=== PATIENT | female | born 1935 | race Caucasian/White ===

== ENCOUNTER 2017-03-21 19:17 | Emergency (ER) | payer MEDICARE, OTHER ==
[~2017-03-21] VITALS: Ht 154.9 cm; Wt 65.2 kg
[~2017-03-21 19:17] MED LIST: ADVI200T PO; ALBAPLEX PO; ALEN70TA39 PO; ASPI325T PO; ASPI81TA85 PO; CHLO125TA PO; COZA1TAB PO; CYCL10TA PO; HYDR-3713 PO; LIDO5DIS36 TD; LOSA50TA20 PO; LOSA50TA21 PO; OMEG100011 PO; SUPPLEMENTS PO; SYST1SOL OU; ULTR37.52 PO; [UNRECOGNIZED DRUG - CODE] PO; [UNRECOGNIZED DRUG - OTHER] PO
[2017-03-21] MEDS ORDERED: METO25TA74 PO (19:37)
[2017-03-21] MEDS ORDERED: ASPI1TAB PO (19:37)
[2017-03-21] MEDS ORDERED: FISH100049 PO (19:37)
[2017-03-21] MEDS ORDERED: LOSA25TA8 PO (19:37)
[2017-03-21] MEDS ORDERED: PLAV75TA38 PO (19:37)
[2017-03-21] MEDS ORDERED: CARB25TA PO (19:41)
[2017-03-21] MEDS ORDERED: CATAPLEX D PO (19:41)
[2017-03-21] MEDS ORDERED: STOO100C PO (19:41)
[2017-03-21 19:59] LABS: EOS # 0.1 K/mm3 (0.0-0.50); EOS % 2.5 % (0.0-3.0); LARGE UNSTAINED CELL # 0.1 K/mm3 (0.0-0.4); LARGE UNSTAINED CELL % 1.6 % (0.0-4.0); LYMPH # 1.3 K/mm3 (1.5-4.5); LYMPH % 24.3 % (24.0-44.0); MEAN CORPUSCULAR HEMOGLOBIN 29.1 pg (27.0-33.0); MEAN CORPUSCULAR HGB CONC 33.8 g/dl (32.0-36.5); MONO # 0.4 K/mm3 (0.0-0.8); MONO % 7.1 % (0.0-5.0); NEUTROPHILS # 3.2 K/mm3 (1.8-7.7); NEUTROPHILS % 63.5 % (36.0-66.0); PLATELET COUNT, AUTOMATED 306 k/mm3 (150-450); RED CELL DISTRIBUTION WIDTH 13.3 % (11.5-14.5)
[2017-03-21] MEDS ORDERED: NS 500 ML IV ONE ×2 (20:00→21:00)
[2017-03-21 20:25] LABS: ANION GAP 8 MEQ/L (8-16); BLOOD UREA NITROGEN 23 MG/DL (7-18); CALCIUM LEVEL 8.8 MG/DL (8.8-10.2); CARBON DIOXIDE LEVEL 23 MEQ/L (21-32); CHLORIDE LEVEL 101 MEQ/L (98-107); CREATININE FOR GFR 0.85 MG/DL (0.55-1.02); GLOMERULAR FILTRATION RATE > 60.0 (>39); GLUCOSE, FASTING 98 MG/DL (83-110); POTASSIUM SERUM 3.8 MEQ/L (3.5-5.1); SODIUM LEVEL 132 MEQ/L (136-145)
[2017-03-21 21:50] VITALS: BP 142/89
--- NOTE | 2017-03-22 08:25 | ECGEPIP ---
Stationary ECG Study [facility] - ED Test Date: 2017-03-21 Pat Name: VIOLET NIÑO Department: Room: - Gender: F Retail Assistant Store Manager: rickey : 1935 Requested By: JESSICA LEVIN Order Number: [id number] Reading MD: Kip Marcelo Measurements Intervals Surveyor Rate: 113 P: 63 NV: 200 QRS: -29 QRSD: 87 T: 57 QT: 311 QTc: 428 Interpretive Statements ATRIAL TACHYCARDIA/FIBRILLATION WITH TRANSITION TO SINUS RHYTHM WITH PACs IN A BIGEMINY PATTERN LAFB MODERATE VOLTAGE CRITERIA FOR LVH, CONSIDER NORMAL VARIANT POSSIBLE SEPTAL MYOCARDIAL INFARCTION, OF INDETERMINATE AGE RHYTHM CHANGE COMPARED TO 05/04/16 Electronically Signed On 03-22-2017 8:25:49 EDT by Kip Marcelo
== END 2017-03-21 21:57 | disposition home or self-care (01) ==
LOC: M ED 20:05
DX: I95.1 Orthostatic hypotension (principal); E86.0 Dehydration; I10 Essential (primary) hypertension; I48.91 Unspecified atrial fibrillation; E78.5 Hyperlipidemia, unspecified; G20 Parkinson's disease; Z85.3 Personal history of malignant neoplasm of breast; Z79.899 Other long term (current) drug therapy; Z79.82 Long term (current) use of aspirin; Z79.02 Long term (current) use of antithrombotics/antiplatelets; Z88.2 Allergy status to sulfonamides; Z88.5 Allergy status to narcotic agent; Z88.8 Allergy status to other drugs, medicaments and biological substances

== ENCOUNTER → 2017-03-26 | Outpatient (REF) | payer MEDICARE, OTHER ==
[~2017-03-26] MED LIST changes: +ASPI1TAB PO; +CARB25TA PO; +CATAPLEX D PO; +FISH100049 PO; +LOSA25TA8 PO; +METO25TA74 PO; +PLAV75TA38 PO; +STOO100C PO
== END ==
LOC: M LAB REF 17:29
PROVIDERS: ATTEND Podiatrist Foot & Ankle Surgery
DX: L98.9 Disorder of the skin and subcutaneous tissue, unspecified (principal)

== ENCOUNTER 2017-05-20 16:54 | Inpatient (IN) | payer MEDICARE, OTHER ==
[~2017-05-20] VITALS: Ht 157.5 cm; Wt 65.4 kg
[~2017-05-20 16:54] MED LIST changes: -LIDO5DIS36 TD; +LIDO5DIS41 TD; -LOSA50TA21 PO; +LOSA50TA5 PO; +METO1TAB32 PO; -METO25TA74 PO; +PLAV1TAB2 PO; -PLAV75TA38 PO; -ULTR37.52 PO; +ULTR37.54 PO
[2017-05-20] MEDS ORDERED: PRAD150C PO (17:17)
[2017-05-20] MEDS ORDERED: LABETALOL HCL 100 MG/20 ML VIAL IV STA (17:43)
[2017-05-20 17:57] LABS: BASO # 0.1 K/mm3 (0.0-0.2); BASO % 1.3 % (0.0-1.0); EOS # 0.2 K/mm3 (0.0-0.50); EOS % 3.6 % (0.0-3.0); LARGE UNSTAINED CELL # 0.1 K/mm3 (0.0-0.4); LARGE UNSTAINED CELL % 2.7 % (0.0-4.0); LYMPH # 1.4 K/mm3 (1.5-4.5); LYMPH % 27.4 % (24.0-44.0); MEAN CORPUSCULAR HEMOGLOBIN 29.1 pg (27.0-33.0); MEAN CORPUSCULAR HGB CONC 33.1 g/dl (32.0-36.5); MEAN CORPUSCULAR VOLUME 87.8 fl (80.0-96.0); MONO # 0.3 K/mm3 (0.0-0.8); MONO % 6.2 % (0.0-5.0); NEUTROPHILS # 2.8 K/mm3 (1.8-7.7); NEUTROPHILS % 58.8 % (36.0-66.0); PLATELET COUNT, AUTOMATED 304 k/mm3 (150-450); RED CELL DISTRIBUTION WIDTH 13.4 % (11.5-14.5); WHITE BLOOD COUNT 4.7 K/mm3 (4.0-10.0)
[2017-05-20 18:11] LABS: ANION GAP 9 MEQ/L (8-16); BLOOD UREA NITROGEN 12 MG/DL (7-18); CALCIUM LEVEL 9.3 MG/DL (8.8-10.2); CARBON DIOXIDE LEVEL 24 MEQ/L (21-32); CHLORIDE LEVEL 102 MEQ/L (98-107); CREATININE FOR GFR 0.64 MG/DL (0.55-1.02); GLOMERULAR FILTRATION RATE > 60.0 (>39); GLUCOSE, FASTING 78 MG/DL (83-110); POTASSIUM SERUM 3.9 MEQ/L (3.5-5.1); SODIUM LEVEL 135 MEQ/L (136-145)
[2017-05-20] MEDS ORDERED: niCARdipine IV 40 MG in APPROPRIATE DILUENT 1 EA IV SCH (18:22)
[2017-05-20] MEDS ORDERED: ISOVUE-370 76% 100ML VIAL (Q9967) As Ordered ONE (18:30)
--- NOTE | 2017-05-20 19:01 | REP ---
CT BRAIN WITHOUT IV CONTRAST: CT Brain is performed without IV contrast. There is mild atrophy. There is no midline shift. Mild periventricular small vessel ischemic changes are seen. Which are chronic in nature. There is no acute hemorrhage. There is no extra-axial fluid collection. Bone window examination is unremarkable. IMPRESSION: Mild atrophy and chronic periventricular small vessel ischemic changes. No acute intracranial hemorrhage. Signed by Robby Fournier MD 05/21/2017 12:34 P
--- NOTE | 2017-05-20 19:04 | REP ---
CHEST, SINGLE VIEW: Single AP view of the chest is performed. There is no acute infiltrate. There is mild cardiomegaly. There is mild calcification and tortuosity of the thoracic aorta. The mediastinal silhouette is unchanged. IMPRESSION: No acute infiltrate. Mild cardiomegaly. Signed by Robby Fournier MD 05/21/2017 12:34 P
--- NOTE | 2017-05-20 19:40 | REPUSA ---
HISTORY: HYPERTENSIVE EMERGENCY VS CVA. Comparison is made to the noncontrast head CT examination d ated 05/20/17. TECHNIQUE: CTA protocol with axial imaging of brain with sagittal and coronal reformatted imaging and 3-D rendering of arterial vascular structures. DLP= 1006.8 mGy-cm. FINDINGS: The examination demonstrates normal contrast opacification of bilateral intracranial verteb ral arteries with PICA branches, basilar artery, superior cerebellar arteries, and bilateral posterio r cerebral arteries. There is also normal patency of the right and left internal carotid arteries, a nterior cerebral arteries, middle cerebral arteries, and port [place] vessels. There is no evide nce of arterial occlusion, stenosis, aneurysm, vasculitis, or arterial malformation seen. There is n ormal venous opacification of bilateral internal cerebral veins. There is no evidence of intracranial hemorrhage seen. IMPRESSION: Negative CTA of brain.
[2017-05-20 20:01] LABS: INR 1.17
--- NOTE | 2017-05-20 20:40 | ECGEPIP ---
Stationary ECG Study [facility] - ED Test Date: 2017-05-20 Pat Name: VIOLET NIÑO Department: Room: - Gender: F Chief Information Security Officer: MARIZOL : 1935 Requested By: Kip Leon Order Number: [id number] Reading MD: Joanne Land Measurements Intervals [place] Rate: 86 P: 26 NH: 204 QRS: -43 QRSD: 97 T: 22 QT: 364 QTc: 438 Interpretive Statements SINUS RHYTHM MARKED LEFT AXIS DEVIATION MINIMAL VOLTAGE CRITERIA FOR LVH, CONSIDER NORMAL VARIANT Electronically Signed On 05-20-2017 20:39:38 EDT by Joanne Land
[2017-05-20] MEDS ORDERED: ACETAMINOPHEN TAB 650MG DOSE (2X325MG) PO PRN (20:45)
[2017-05-20] MEDS ORDERED: SINEMET 25-100 MG TAB PO SCH (21:00)
[2017-05-20] MEDS ORDERED: FISH1000 PO (21:17)
[2017-05-20] MEDS ORDERED: COLC1TAB13 PO (21:17)
[2017-05-20] MEDS ORDERED: CATAPLEX D PO (21:17)
[2017-05-20] MEDS ORDERED: DOCU100C16 PO (21:17)
[2017-05-20] MEDS ORDERED: POLYVINYL ALCOHOL OPHTH SOLN 15 ML(LIQUITEARS) OU PRN (21:30)
[2017-05-20 21:58] LABS: MAGNESIUM LEVEL 2.2 MG/DL (1.8-2.4)
[2017-05-20] MEDS: hydrALAZINE INJ 20 MG/ML VIAL IV SCH (23:49)
[2017-05-21] MEDS: METOPROLOL TART 25 MG TABLET PO SCH ×2 (00:34→06:00)
[2017-05-21 01:01] LABS: ANION GAP 9 MEQ/L (8-16); BLOOD UREA NITROGEN 11 MG/DL (7-18); CALCIUM LEVEL 9.2 MG/DL (8.8-10.2); CARBON DIOXIDE LEVEL 25 MEQ/L (21-32); CHLORIDE LEVEL 99 MEQ/L (98-107); CREATININE FOR GFR 0.61 MG/DL (0.55-1.02); GLOMERULAR FILTRATION RATE > 60.0 (>39); GLUCOSE, FASTING 110 MG/DL (83-110); POTASSIUM SERUM 3.5 MEQ/L (3.5-5.1); SODIUM LEVEL 133 MEQ/L (136-145)
[2017-05-21 01:57] VITALS: BP 125/78
[2017-05-21] MEDS: NITROGLYCERIN 2% OINT 1 GM *U/D* PKT TOP SCH ×3 (01:57→08:53)
[2017-05-21] MEDS: DABIGATRAN ETEXILATE 75 MG CAP (PRADAXA) PO SCH ×2 (02:24→09:05)
[2017-05-21] MEDS: COLCHICINE 0.6 MG TAB PO SCH ×2 (02:24→09:05)
[2017-05-21] MEDS: hydrALAZINE INJ 20 MG/ML VIAL IV SCH ×3 (03:00→11:00)
[2017-05-21 05:06] VITALS: BP 105/75
[2017-05-21 06:27] LABS: BASO % 0.9 % (0.0-1.0); EOS % 0.4 % (0.0-3.0); LARGE UNSTAINED CELL # 0.1 K/mm3 (0.0-0.4); LARGE UNSTAINED CELL % 0.9 % (0.0-4.0); LYMPH # 0.9 K/mm3 (1.5-4.5); LYMPH % 17.2 % (24.0-44.0); MEAN CORPUSCULAR HEMOGLOBIN 28.3 pg (27.0-33.0); MEAN CORPUSCULAR HGB CONC 32.6 g/dl (32.0-36.5); MONO # 0.3 K/mm3 (0.0-0.8); MONO % 5.1 % (0.0-5.0); NEUTROPHILS # 3.9 K/mm3 (1.8-7.7); NEUTROPHILS % 75.4 % (36.0-66.0); PLATELET COUNT, AUTOMATED 337 k/mm3 (150-450); RED CELL DISTRIBUTION WIDTH 13.4 % (11.5-14.5); WHITE BLOOD COUNT 5.2 K/mm3 (4.0-10.0)
[2017-05-21 06:33] LABS: ANION GAP 9 MEQ/L (8-16); BLOOD UREA NITROGEN 11 MG/DL (7-18); CALCIUM LEVEL 8.7 MG/DL (8.8-10.2); CARBON DIOXIDE LEVEL 26 MEQ/L (21-32); CHLORIDE LEVEL 99 MEQ/L (98-107); CHOLESTEROL LEVEL 209 MG/DL (<200); CREATININE FOR GFR 0.63 MG/DL (0.55-1.02); GLOMERULAR FILTRATION RATE > 60.0 (>39); GLUCOSE, FASTING 90 MG/DL (83-110); MAGNESIUM LEVEL 2.2 MG/DL (1.8-2.4); POTASSIUM SERUM 3.6 MEQ/L (3.5-5.1); SODIUM LEVEL 134 MEQ/L (136-145); TRIGLYCERIDES LEVEL 70 MG/DL (<150)
[2017-05-21 07:49] VITALS: BP 111/67
[2017-05-21 08:50] VITALS: BP 108/68
[2017-05-21] MEDS ORDERED: OMEGA-3 1050MG CAPSULE PO SCH (09:00)
[2017-05-21] MEDS ORDERED: DOCUSATE SODIUM 100 MG CAP PO SCH (09:00)
[2017-05-21 11:00] VITALS: BP 127/84
[2017-05-21] MEDS ORDERED: METO25TA4 PO (11:51)
--- NOTE | 2017-05-21 18:38 | DS.PDOC ---
Discharge Summary General Date of Admission May 20, 2017 at 20:34 Date of Discharge May 21, 2017 Discharge Summary PROCEDURES PERFORMED DURING STAY: None. ADMITTING DIAGNOSES: 1. Hypertensive urgency . 2.. Hypertension. 3. Hyperlipidemia. 4. Gait instability. 5. History of right breast cancer status post lumpectomy and radiation in 1996. 6. Memory difficulties, being worked up for Parkinson's disease as an outpatient at [facility]. DISCHARGE DIAGNOSES: 1. Hypertensive urgency . 2.. Hypertension. 3. Hyperlipidemia. 4. Gait instability. 5. History of right breast cancer status post lumpectomy and radiation in 1996. 6. Memory difficulties, being worked up for Parkinson's disease as an outpatient at [facility]. Consultants: None COMPLICATIONS: None HOSPITAL COURSE: 81-year-old female admitted to the emergency last night and subsequently to the hospitalist service due to elevated blood pressure/ hypertensive urgency. With no acute findings on 12-lead EKG or on telemetry overnight. Her cardiac enzymes were cycled. They didn't appear to trend in the 0.5 range with no symptomatology this morning and her blood pressure was much better controlled. She does have an appointment with her otolaryngology teacher next week and I encouraged her to see her primary care provider within the next 7-10 days as well. Any rate, we did make some adjustments in her blood pressure medications and she'll follow-up with her primary care provider regarding this as well. DISCHARGE MEDICATIONS: Please see below. ALLERGIES: Please see below. PHYSICAL EXAMINATION ON DISCHARGE: VITAL SIGNS: Please see below. GENERAL: No Acute distress HEENT: Unremarkable NECK: Negative CARDIOVASCULAR EXAMINATION: Regular rate and rhythm RESPIRATORY EXAMINATION: Clear To auscultation ABDOMINAL EXAMINATION: Unremarkable EXTREMITIES: Unremarkable SKIN: Unremarkable NEUROLOGICAL EXAMINATION: Cranial nerves II through XII grossly intact PSYCHIATRIC EXAMINATION: Negative LABORATORY DATA: Please see below. Discharge condition is good. Disposition discharged home Discharge instructions ACTIVITY: As tolerated. DIET: Regular. Keep regular appointment with her otolaryngology teacher next week. She should schedule appointment with her primary care provider in the next 7-10 days. Seek medical attention should symptoms worsen or progress. TIME SPENT ON DISCHARGE: Greater than 35 minutes. Vital Signs/I&Os Vital Signs Date Time Temp Pulse Resp B/P (MAP) Pulse Ox O2 Delivery O2 Flow Rate FiO2 05/21/17 11:00 127/84 05/21/17 08:50 84 05/21/17 07:53 Nasal Cannula 2.0 05/21/17 07:49 99.2 18 95 I&O- Last 24 Hours up to 6 AM 05/21/17 06:00 Intake Total 227 ml Balance 227 ml Laboratory Data Labs 24H Laboratory Tests 2 05/20/17 19:36: Prothrombin Time 15.1H, Prothromb Time International Ratio 1.17, Activated Partial Thromboplast Time 42.2H 05/21/17 00:21: Anion Gap 9, Glomerular Filtration Rate > 60.0, Blood Urea Nitrogen 11, Creatinine 0.61, Sodium Level 133L, Potassium Level 3.5, Chloride Level 99, Carbon Dioxide Level 25, Calcium Level 9.2, Total Creatine Kinase 38, Creatine Kinase MB 1.0, Creatine Kinase MB Relative Index 2.63, Troponin I 0.52H 05/21/17 05:32: Anion Gap 9, Glomerular Filtration Rate > 60.0, Calcium Level 8.7L, Total Creatine Kinase 37, Creatine Kinase MB 1.0, Creatine Kinase MB Relative Index 2.70, Troponin I 0.50H, White Blood Count 5.2, Red Blood Count 4.25, Hemoglobin 12.0, Hematocrit 37.0, Mean Corpuscular Volume 87.0, Mean Corpuscular Hemoglobin 28.3, Mean Corpuscular Hemoglobin Concent 32.6, Red Cell Distribution Width 13.4, Platelet Count 337, Neutrophils (%) (Auto) 75.4H, Lymphocytes (%) (Auto) 17.2L, Monocytes (%) (Auto) 5.1H, Eosinophils (%) (Auto) 0.4, Basophils (%) (Auto) 0.9, Neutrophils # (Auto) 3.9, Lymphocytes # (Auto) 0.9L, Monocytes # (Auto) 0.3, Eosinophils # (Auto) 0.0, Basophils # (Auto) 0.0, Large Unclassified Cells % 0.9, Large Unclassified Cells # 0.1, Magnesium Level 2.2, Triglycerides Level 70, LDL Cholesterol 112.0H, Total Cholesterol 209H, Non -HDL Cholesterol (LDL + VLDL) 126, Total HDL Cholesterol 83, Cholesterol/HDL Ratio 2.518, Thyroid Stimulating Hormone (TSH) 0.419 CBC/BMP Laboratory Tests 05/21/17 00:21 Calcium Level 9.2, Total Creatine Kinase 38 05/21/17 05:32 Red Blood Count 4.25, Mean Corpuscular Volume 87.0, Mean Corpuscular Hemoglobin 28.3, Mean Corpuscular Hemoglobin Concent 32.6, Red Cell Distribution Width 13.4 , Neutrophils (%) (Auto) 75.4 H, Lymphocytes (%) (Auto) 17.2 L, Monocytes (%) ( Auto) 5.1 H, Eosinophils (%) (Auto) 0.4, Basophils (%) (Auto) 0.9, Neutrophils # (Auto) 3.9, Lymphocytes # (Auto) 0.9 L, Monocytes # (Auto) 0.3, Eosinophils # (Auto) 0.0, Basophils # (Auto) 0.0 Discharge Medications Scheduled Alendronate Sodium (Alendronate Sodium) 70 Mg Tab, 70 MG PO QWEEK, (Reported) TAKES ON Saturday Calcium Lactate (Kee-Lac) 500 Mg Cap, 500 MG PO DAILY, (Reported) Carbidopa/Levodopa (Carbidopa/Levodopa 25-100 mg) 1 Tab Tab, 1 TAB PO QHS, ( Reported) Colchicine (Colchicine) 0.6 Mg Tab, 0.6 MG PO BID, (Reported) Dabigatran Etexilate (Pradaxa) 150 Mg Cap, 150 MG PO BID, (Reported) Docusate Sodium (Docusate Sodium) 100 Mg Cap, 400 MG PO DAILY, (Reported) Fish Oil (Fish Oil) 1,000 Mg Cap, 1,000 MG PO DAILY, (Reported) Metoprolol Tartrate (Metoprolol Tartrate) 25 Mg Tab, 25 MG PO BID [Cataplex D] , 1 TAB PO DAILY, (Reported) Scheduled PRN Polyethylene Glycol (Systane 0.4-0.3 %) 15 Ml Jesi, 1 DROP OU TID PRN for DRY EYES, (Reported) Allergies Coded Allergies: Baclofen (Verified Allergy, Severe, SWELLING, 03/21/17) Gabapentin (Verified Allergy, Severe, SWELLING, 03/21/17) Hydrocodone (Verified Adverse Reaction, Intermediate, CONFUSION, 03/13/15) Sulfamethoxazole w/Trimethoprim (Verified Adverse Reaction, Intermediate, NAUSEA, 05/04/16) JOHNNIE ENGLAND DO May 21, 2017 18:38
--- NOTE | 2017-05-22 06:13 | HPE ---
DATE OF ADMISSION: 05/20/2017 Time patient was seen was at 2200 hours. PRIMARY CARE PROVIDER: Dr. Royal CHIEF COMPLAINT: Severe headache, nausea, shortness of breath with elevated blood pressure. HISTORY OF PRESENT ILLNESS: 81-year-old female with past medical history of recent cardiac ablation for uncontrolled paroxysmal atrial fibrillation, also hypertension, hyperlipidemia, osteoarthritis, breast cancer, syncope, and Parkinson's disease presented with elevated blood pressure this evening at home. Blood pressure was 171/110, and the patient also complained of severe headache that was bitemporal and also severe nausea. Per patient, this has happened in the past; however, today is much worse. She stated that she also had shortness of breath for the past few days and it is worse after walking. Patient appears to be exertional. She has a followup with joy loading machine operator next week. Her joy loading machine operator is Dr. Batres from [facility], and her facilities painter was Dr. Mendoza. Otherwise, patient denies any fever or chills, any abdominal pains. Denies any vomiting. Denies any diarrhea, constipation. Denies any dysuria, blood in urine. Denies any sick contract or recent traveling. ALLERGIES: Patient is allergic to BACLOFEN, which makes her head and hands swell; GABAPENTIN makes her head and hands swell; HYDROCODONE makes her confused ; and BACTRIM gives her nausea. However, patient stated all those happened so long ago, she does not remember clearly of the symptoms. HOME MEDICATIONS: Include: - alendronate 70 mg one tablet by mouth weekly - calcium lactate 500 mg one tablet by mouth daily - carbidopa/levadopa one tablet by mouth nightly - colchicine 0.6 mg by mouth twice a day - Pradaxa 150 mg one tablet by mouth twice a day - docusate 400 mg by mouth daily - fish oil 1000 mg by mouth daily - metoprolol succinate 25 mg by mouth nightly - polyethylene glycol one droplet each eye three times a day - Cataplex one tablet by mouth daily PAST MEDICAL HISTORY: Includin. Hypertension. 2. Atrial fibrillation status post ablation just a few weeks ago with Dr. Mendoza. 3. Hyperlipidemia. 4. Osteoarthritis. 5. History of syncope, possible transient ischemic attack (TIA). 6. Parkinson's disease. 7. Small vessel disease of the brain. PAST SURGICAL HISTORY: Includin. Recent ablation for atrial fibrillation. 2. (C) sections. 3. Right breast lumpectomy. 4. Total hysterectomy. 5. Cataract. 6. Left knee meniscus repair. 7. Left arm fracture repair. SOCIAL HISTORY: Patient is , lives with her . FAMILY HISTORY: Mother from lung cancer. Father from Alzheimer's disease. REVIEW OF SYSTEMS: General: Patient denies any weight changes, any recent traveling, sick contact, or any fever or chills. HEENT: Denies any changes with vision, smelling, hearing, or taste. Cardiovascular: Admits to shortness of breath that is exertional. Denies any chest pain, palpitations. Patient had atrial fibrillation and status post ablation just last Saturday. Pulmonary: Denies any lung disease; however, has shortness of breath currently. Gastrointestinal (GI): Denies any abdominal pains, nausea, vomiting, diarrhea, or constipation. Genitourinary (): Denies any blood in urine, any dysuria, urinary urgency. Musculoskeletal: Denies any pain anywhere. Endocrine: Denies any polydipsia, polyuria, any heat or cold intolerance. Hematology/Oncology: Denies any ease of bruise or any bleeding anywhere. Psychiatric: Denies any anxiety, depression. Neurologic: Denies any weakness on any one side of her body. PHYSICAL EXAM: Vital Signs: Temperature 98.2, pulse was 87, respirations 18, blood pressure 177/144, oxygen was saturating at 96% on room air. However, at the time of interview, patient required 2 liters of nasal cannula. General: Patient is a pleasant elderly female who was alert, awake, oriented times three, does not appear to be in distress, lying comfortably in bed with head elevated at a 45-degree angle. HEENT: Normocephalic, atraumatic. Extraocular motor intact. Mucosa moist. Neck: Supple. No neck lymphadenopathy. Cardiovascular: Regular rate, rhythm. Normal S1, S2. No murmurs. Lungs: Clear to auscultate bilaterally. No wheezing, rales, or rhonchi. Abdomen: Positive bowel sounds. Soft. There are no peritoneal signs. No ecchymosis. Extremities: No edema, clubbing, or cyanosis. Skin: Warm and dry. Neurologic: Cranial nerve II-XII intact. No focal neurologic deficit. LABS: WBC 7.4, hemoglobin 12.6, hematocrit 38, platelet count of 304, MCV 87.8. Sodium 135, potassium 3.9, chloride 102, bicarbonate 24, anion gap was 9, BUN 12 , creatinine 0.64, GFR greater than 60, fasting glucose 78, calcium 9.3, magnesium 2.2, total CK 65, CK-MB 1, troponin 0.63. BNP was slightly elevated at 148. PT 15.1, INR 1.17, PTT 42.2. Patient has a portable chest x-ray. Shows no acute infiltrate. Patient had a head CT without contrast. Shows mild atrophy and chronic periventricular small vessel ischemic changes. No acute intracranial bleed. CT angiography of the head shows a negative CT angiography of the brain. ASSESSMENT AND PLAN: 81-year-old female with multiple comorbidities, most significantly severe hypertension, paroxysmal atrial fibrillation status post ablation just last Saturday, hyperlipidemia, osteoarthritis, history of breast cancer, Parkinson's disease, multiple syncopes in the last, presented with: 1. Hypertensive urgency with initial blood pressure of 177/144. Patient also has severe headache and nausea with elevated blood pressure. At one point in the emergency room, her blood pressure was 200/140. Will titrate her blood pressure down slowly. In addition, she also has a troponin of 0.63; however, EKG did not show any abnormalities. It shows sinus rhythm with a ventricular rate of 81 beats per minute. Patient also has slightly elevated BNP. Will repeat EKG and continue to trend cardiac markers. Patient is currently on Pradaxa for atrial fibrillation. 2. Elevated troponin with troponin of 0.63. Will rule out acute coronary syndrome (ACS). It is likely secondary to hypertensive urgency from elevated blood pressure. Will continue to trend. EKG was normal. Patient is on Pradaxa and also metoprolol. 3. History of atrial fibrillation status post ablation just last Saturday. Continue to monitor. No signs of atrial fibrillation currently. Continue Pradaxa, beta-b[place] with metoprolol tartrate 25 mg by mouth every 6 hours. Patient was on metoprolol succinate at home. Continue colchicine for chest pain , which was started by cardiology outpatient. 4. History of hyperlipidemia; however, patient is not on any statin. Unclear the reason. Will likely need to obtain old record from patient's cardiology. 5. Osteoarthritis. Continue pain management with Tylenol and colchicine. 6. History of Parkinson's disease and multiple falls and syncope in the past. Continue fall precaution. 7. Deep venous thrombosis (DVT) prophylaxis. On home Pradaxa 150 mg by mouth twice a day. 8. Fluid and electrolyte and diet. Patient's potassium is 3.9, currently at goal. Continue [id number] diet and low-fat, low-cholesterol diet. DISPOSITION: Will investigate etiology for patient's hypertensive urgency. Will slowly titrate the patient's blood pressure down, and will continue to monitor any signs of acute coronary syndrome. Continue to trend troponins. Repeat EKG in the morning. Will possibly consider echocardiogram. Consider renal artery Doppler duplex. Patient has been discussed with attending doctor, Dr. Huddleston. My preceptor for this patient encounter was Dr. Cathie Huddleston. The preceptor was physically present in the building during the encounter and was fully available. As needed, all aspects of the patient interview, examination, medical decision making process, and medical care plan development were reviewed and approved by the preceptor. The preceptor is aware and concurs with the plan as stated in the body of this note and will attest to such by his/her cosignature. MATY
--- NOTE | 2017-05-23 19:43 | ECGEPIP ---
Stationary ECG Study [facility] Test Date: 2017-05-21 Pat Name: VIOLET NIÑO Department: ED Room: [place] [address] Gender: F Ceramics Artist: : 1935 Requested By: KONRAD WIGGINS Order Number: [id number] Reading MD: Estrellita oRwley Measurements Intervals [place] Rate: 85 P: 23 WI: 184 QRS: -40 QRSD: 94 T: -4 QT: 387 QTc: 461 Interpretive Statements SINUS RHYTHM MARKED LEFT AXIS DEVIATION,POOR R WAVE PROGRESSION PATTERN CONSISTENT WITH PULMONARY DISEASE NONSPECIFIC T-WAVE ABNORMALITY SIMILAR 05/20/17 Electronically Signed On 05-23-2017 19:43:18 EDT by Estrellita Rowley
== END 2017-05-21 12:25 | disposition home or self-care (01) | DRG 305 ==
LOC: M ED 16:54 → M ED INP 20:34
PROVIDERS: ADMIT General Practice; ATTEND Hospitalist
DX: I16.0 Hypertensive urgency (principal); I10 Essential (primary) hypertension; Z92.3 Personal history of irradiation; Z85.3 Personal history of malignant neoplasm of breast; R26.81 Unsteadiness on feet; Z79.01 Long term (current) use of anticoagulants; Z79.899 Other long term (current) drug therapy; Z88.1 Allergy status to other antibiotic agents; Z88.8 Allergy status to other drugs, medicaments and biological substances; G20 Parkinson's disease; Z90.710 Acquired absence of both cervix and uterus; Z98.49 Cataract extraction status, unspecified eye; M19.90 Unspecified osteoarthritis, unspecified site

== ENCOUNTER 2017-05-23 11:04 | Emergency (ER) | payer MEDICARE, OTHER ==
[~2017-05-23] VITALS: Ht 157.5 cm; Wt 61.8 kg
[~2017-05-23 11:04] MED LIST changes: +COLC1TAB13 PO; +DOCU100C16 PO; +FISH1000 PO; +METO25TA4 PO; +PRAD150C PO
[2017-05-23] MEDS ORDERED: BENZ100C5 (11:22)
[2017-05-23 12:44] LABS: MEAN CORPUSCULAR HEMOGLOBIN 28.8 pg (27.0-33.0); MEAN CORPUSCULAR HGB CONC 33.6 g/dl (32.0-36.5); MEAN CORPUSCULAR VOLUME 85.8 fl (80.0-96.0); RED CELL DISTRIBUTION WIDTH 13.2 % (11.5-14.5); WHITE BLOOD COUNT 5.1 K/mm3 (4.0-10.0)
[2017-05-23] MEDS ORDERED: ACETAMINOPHEN TAB 650MG DOSE (2X325MG) PO ONE (13:00)
[2017-05-23] MEDS ORDERED: **hydrALAZINE HCL** 25 MG TAB PO ONE (13:00)
[2017-05-23 13:14] LABS: ANION GAP 8 MEQ/L (8-16); BLOOD UREA NITROGEN 14 MG/DL (7-18); CALCIUM LEVEL 9.3 MG/DL (8.8-10.2); CARBON DIOXIDE LEVEL 27 MEQ/L (21-32); CHLORIDE LEVEL 99 MEQ/L (98-107); CREATININE FOR GFR 0.73 MG/DL (0.55-1.02); GLOMERULAR FILTRATION RATE > 60.0 (>39); GLUCOSE, FASTING 85 MG/DL (83-110); SODIUM LEVEL 134 MEQ/L (136-145); T UPTAKE 38 % (30-39); THYROXINE (T4) 11.5 UG/DL (4.5-12.0)
[2017-05-23 13:15] LABS: POTASSIUM SERUM 4.5 MEQ/L (3.5-5.1)
--- NOTE | 2017-05-23 13:28 | REP ---
CHEST, TWO VIEWS: Two views of the chest are performed and compared to single view chest 05/20/2017 as well as other prior exams dating back to 04/25/2010. There is minor fibroatelectatic change in each lung base without evidence of acute infiltrate. Heart is upper limits of normal in size. There is some tortuosity of the thoracic aorta. The mediastinal silhouette is unchanged. There is osteopenia with compression deformities of thoracic spine which have increased in severity since the thoracic spine series of 03/15/2015. There is a fairly severe compression deformity at the T8 level. IMPRESSION: No acute infiltrate. Progressive compression deformities of thoracic vertebral bodies. Signed by Robby Fournier MD 05/23/2017 05:04 P
[2017-05-23 13:29] VITALS: BP 151/91
[2017-05-23] MEDS ORDERED: ISOVUE-370 76% 100ML VIAL (Q9967) As Ordered ONE (14:05)
--- NOTE | 2017-05-23 15:27 | REP ---
CT of the abdomen pelvis with IV contrast, without bowel contrast: Comparison is 03/12/2011. The visualized lung mohan are unchanged and unremarkable. The hepatic parenchyma contains a few tiny cysts but is unchanged and otherwise unremarkable. The gallbladder, pancreas and spleen are unchanged unremarkable. There are no adrenal masses. The adrenals are unremarkable. There are multiple bilateral renal cortical cysts. These are not significantly changed. The abdominal aorta contains calcified atheroma but is otherwise unremarkable. There is no periaortic or retroperitoneal mass. The bowel is unremarkable except for descending colon and sigmoid colon diverticulosis. There is no diverticulitis. This is unchanged. No abdominal or pelvic masses are identified. Pelvis: There is a right hip arthroplasty resulting in beam hardening artifact obscuring visualization of the pelvis. This was not present previously. The the patient indicates she has a hysterectomy. The vaginal cuff and adnexa are unremarkable. There is no ascites. The bladder is unremarkable. Impression: There are no adrenal, retroperitoneal or abdominal masses. There are numerous bilateral renal cortical cysts, unchanged. There are scattered tiny hepatic cysts, unchanged. No ascites or adenopathy. Diverticulosis without diverticulitis. Signed by Robby Groves MD 05/23/2017 03:19 P
[2017-05-23 16:06] VITALS: BP 134/89
--- NOTE | 2017-05-24 08:45 | ECGEPIP ---
Stationary ECG Study [facility] - ED Test Date: 2017-05-23 Pat Name: VIOLET NIÑO Department: Room: - Gender: F Private Duty Aide: casandra : 1935 Requested By: SANJEEV Solis Order Number: [id number] Reading MD: Joanne Land Measurements Intervals [place] Rate: 74 P: 33 MT: 196 QRS: -48 QRSD: 96 T: 40 QT: 383 QTc: 427 Interpretive Statements SINUS RHYTHM LEFT ANTERIOR FASCICULAR BLOCK MODERATE VOLTAGE CRITERIA FOR LVH, CONSIDER NORMAL VARIANT POSSIBLE SEPTAL MYOCARDIAL INFARCTION, OF INDETERMINATE AGE DECREASED RATE 05/21/17 Electronically Signed On 05-24-2017 8:44:40 EDT by Joanne Land
== END 2017-05-23 16:41 | disposition home or self-care (01) ==
LOC: M ED 11:04
DX: I10 Essential (primary) hypertension (principal); I48.91 Unspecified atrial fibrillation; G20 Parkinson's disease; E78.4 Other hyperlipidemia; Z86.73 Personal history of transient ischemic attack (TIA), and cerebral infarction without residual deficits
CPT/HCPCS: 36415; 71020; 74177; 80048; 81001; 84436; 84443; 84479; 85007; 85027; 93005; 99284; Q9967

== ENCOUNTER 2017-06-10 09:55 | Emergency (ER) | payer MEDICARE, OTHER ==
[~2017-06-10] VITALS: Ht 154.9 cm; Wt 65.2 kg
[~2017-06-10 09:55] MED LIST changes: +BENZ100C5
[2017-06-10] MEDS ORDERED: ALBUTEROL SULFATE 2.5 MG/0.5 ML INH NEB SOLN INH ONE (10:45)
[2017-06-10] MEDS ORDERED: methylPREDNISolone INJ 125 MG/2 ML VIAL (J2930) IV ONE (10:45)
[2017-06-10] MEDS ORDERED: IPRATROPIUM 0.5MG/ALBUTEROL 2.5MG INH SOL UD 3ML (DUONEB)(J7620) NEB ONE (10:45)
--- NOTE | 2017-06-10 11:02 | REP ---
Clinical: Dyspnea and cough . Comparison: 05/23/2017 . Findings: The mediastinum and cardiac silhouette are stable and within normal limits for portable technique. The lung mohan are clear without acute consolidation, effusion, or pneumothorax. Skeletal structures are intact. Impression: No acute cardiopulmonary process appreciated. Signed by Kirby Delaney MD 06/10/2017 10:53 A
[2017-06-10 11:03] LABS: BASO # 0.1 K/mm3 (0.0-0.2); BASO % 1.6 % (0.0-1.0); EOS # 0.1 K/mm3 (0.0-0.50); EOS % 3.8 % (0.0-3.0); LARGE UNSTAINED CELL % 1.2 % (0.0-4.0); LYMPH % 26.5 % (24.0-44.0); MEAN CORPUSCULAR HEMOGLOBIN 29.1 pg (27.0-33.0); MEAN CORPUSCULAR HGB CONC 33.4 g/dl (32.0-36.5); MEAN CORPUSCULAR VOLUME 86.9 fl (80.0-96.0); MONO # 0.2 K/mm3 (0.0-0.8); MONO % 5.5 % (0.0-5.0); NEUTROPHILS # 2.3 K/mm3 (1.8-7.7); NEUTROPHILS % 61.4 % (36.0-66.0); PLATELET COUNT, AUTOMATED 337 k/mm3 (150-450); RED CELL DISTRIBUTION WIDTH 13.5 % (11.5-14.5); WHITE BLOOD COUNT 3.7 K/mm3 (4.0-10.0)
[2017-06-10 11:12] LABS: INR 1.11
[2017-06-10 11:22] LABS: ALBUMIN 3.4 GM/DL (3.2-5.2); ALBUMIN/GLOBULIN RATIO 0.87 (1.00-1.93); ALKALINE PHOSPHATASE 87 U/L (45-117); ALT/SGPT 9 U/L (12-78); ANION GAP 9 MEQ/L (8-16); AST/SGOT 13 U/L (15-37); BILIRUBIN,DIRECT < 0.1 MG/DL (0.0-0.2); BILIRUBIN,TOTAL 0.4 MG/DL (0.2-1.0); BLOOD UREA NITROGEN 10 MG/DL (7-18); CALCIUM LEVEL 8.8 MG/DL (8.8-10.2); CARBON DIOXIDE LEVEL 25 MEQ/L (21-32); CHLORIDE LEVEL 106 MEQ/L (98-107); CREATININE FOR GFR 0.68 MG/DL (0.55-1.02); GLOMERULAR FILTRATION RATE > 60.0 (>39); GLUCOSE, FASTING 84 MG/DL (83-110); POTASSIUM SERUM 3.7 MEQ/L (3.5-5.1); SODIUM LEVEL 140 MEQ/L (136-145); TOTAL PROTEIN 7.3 GM/DL (6.4-8.2)
[2017-06-10 12:53] VITALS: BP 150/110
--- NOTE | 2017-06-11 20:58 | ECGEPIP ---
Stationary ECG Study [facility] - ED Test Date: 2017-06-10 Pat Name: VIOLET NIÑO Department: Room: - Gender: F Cobbler Apprentice: casandra : 1935 Requested By: Harshal Moss Order Number: [id number] Reading MD: Joanne Land Measurements Intervals [place] Rate: 74 P: 27 MO: 192 QRS: -35 QRSD: 94 T: -1 QT: 377 QTc: 420 Interpretive Statements SINUS RHYTHM MARKED LEFT AXIS DEVIATION MODERATE VOLTAGE CRITERIA FOR LVH, CONSIDER NORMAL VARIANT SIMILAR 05/23/17 Electronically Signed On 06-11-2017 20:58:36 EDT by Joanne Land
== END 2017-06-10 13:06 | disposition home or self-care (01) ==
LOC: M ED 09:55
DX: R05 Cough (principal); I48.91 Unspecified atrial fibrillation; E10.9 Type 1 diabetes mellitus without complications; I10 Essential (primary) hypertension; E78.4 Other hyperlipidemia
CPT/HCPCS: 71010; 80048; 80076; 82550; 82553; 83605; 83880; 84436; 84443; 84484; 85025; 85379; 85610; 87040; 87804; 93005; 93041; 94640; 94760; 96374; 99285; J2930

== ENCOUNTER 2017-06-12 16:37 | Emergency (ER) | payer MEDICARE, OTHER ==
[~2017-06-12] VITALS: Ht 157.5 cm; Wt 64.5 kg
[2017-06-12] MEDS ORDERED: AZIT-12 PO (17:13)
[2017-06-12] MEDS ORDERED: PRED20TA PO (17:13)
[2017-06-12] MEDS ORDERED: ONDANSETRON 4 MG ORAL DISINTEGRATING TAB (S0181) PO ONE (18:15)
[2017-06-12] MEDS ORDERED: ACETAMINOPHEN TAB 650MG DOSE (2X325MG) PO ONE (18:15)
--- NOTE | 2017-06-12 18:59 | REP ---
T-spine series: Three views: History: Mid to left back pain. Question compression fracture. Comparison chest x-ray is from 05/23/2017. Comparison thoracic spine radiographs are from 03/15/2015. Findings: There is 75% collapse and anterior wedging at the T8 vertebral body. There is progressive volume loss and compared to the 03/15/2015 prior study. This is unchanged from the 05/23/2017 prior study however. There is also mild wedging at the T5 vertebral body anteriorly. This is unchanged from most recent chest x-ray of 05/23/2017. It is new when compared with the prior T-spine series from 2014. Degenerative disc disease is seen in the mid and lower thoracic spine as before. There is diffuse osteopenia. There is slight paravertebral swelling about the T8 vertebral body. Impression: Wedge compression fracture deformities at T5 and T8 both unchanged from the 05/23/2017 prior chest x-ray. There has been progressive loss of vertebral body height at T8 and the T5 compression is new when compared with the older thoracic spine radiographs of March 2015. Signed by Iggy Smalls MD 06/12/2017 07:20 P
[2017-06-12 19:23] LABS: BASO % 0.2 % (0.0-1.0); EOS % 0.3 % (0.0-3.0); LARGE UNSTAINED CELL # 0.1 K/mm3 (0.0-0.4); LARGE UNSTAINED CELL % 0.8 % (0.0-4.0); LYMPH # 1.1 K/mm3 (1.5-4.5); LYMPH % 13.2 % (24.0-44.0); MEAN CORPUSCULAR HEMOGLOBIN 29.1 pg (27.0-33.0); MEAN CORPUSCULAR HGB CONC 33.8 g/dl (32.0-36.5); MONO # 0.4 K/mm3 (0.0-0.8); MONO % 4.8 % (0.0-5.0); NEUTROPHILS # 6.4 K/mm3 (1.8-7.7); NEUTROPHILS % 80.6 % (36.0-66.0); PLATELET COUNT, AUTOMATED 361 k/mm3 (150-450); RED CELL DISTRIBUTION WIDTH 13.2 % (11.5-14.5)
--- NOTE | 2017-06-12 19:34 | REP ---
Left rib series: Five views including PA chest: History: Rule out posterior rib fracture. Comparison radiographs of the left rib cage is from 07/29/2015. Findings: PA chest radiograph shows mildly prominent heart unchanged from comparison chest x-ray 06/10/2017. There is diffuse osteopenia. The aorta is tortuous. The lung mohan are clear. No pneumothorax is seen. Multiple views of the left rib cage show old appearing healed fractures of the left anterior 6th, 7th, 8th, and 9th ribs. No definite new rib fracture is seen. Cardiac monitoring device is seen overlying the heart. Impression: Old appearing fractures of the 6th through 9th anterior ribs. Signed by Iggy Smalls MD 06/12/2017 08:06 P
[2017-06-12 19:46] LABS: ANION GAP 10 MEQ/L (8-16); BLOOD UREA NITROGEN 13 MG/DL (7-18); CALCIUM LEVEL 9.2 MG/DL (8.8-10.2); CARBON DIOXIDE LEVEL 27 MEQ/L (21-32); CHLORIDE LEVEL 99 MEQ/L (98-107); CREATININE FOR GFR 0.89 MG/DL (0.55-1.02); GLOMERULAR FILTRATION RATE > 60.0 (>39); GLUCOSE, FASTING 92 MG/DL (83-110); POTASSIUM SERUM 3.3 MEQ/L (3.5-5.1); SODIUM LEVEL 136 MEQ/L (136-145)
[2017-06-12 20:01] VITALS: BP 160/80
[2017-06-12] MEDS ORDERED: BENZ200C53 PO (20:42)
--- NOTE | 2017-06-12 21:44 | ECGEPIP ---
Stationary ECG Study [facility] - ED Test Date: 2017-06-12 Pat Name: VIOLET NIÑO Department: Room: - Gender: F Broadcast Journalist: : 1935 Requested By: JOHNNIE LALA PA-C. Order Number: [id number] Reading MD: Joanne Land Measurements Intervals [place] Rate: 75 P: 66 DE: 180 QRS: -34 QRSD: 103 T: 18 QT: 389 QTc: 435 Interpretive Statements SINUS RHYTHM MARKED LEFT AXIS DEVIATION MODERATE VOLTAGE CRITERIA FOR LVH, CONSIDER NORMAL VARIANT SIMILAR 06/10/17 Electronically Signed On 06-12-2017 21:43:56 EDT by Joanne Land
== END 2017-06-12 20:58 | disposition home or self-care (01) ==
LOC: M ED 16:37
DX: S22.050D Wedge compression fracture of T5-T6 vertebra, subsequent encounter for fracture with routine healing (principal); S22.060D Wedge compression fracture of T7-T8 vertebra, subsequent encounter for fracture with routine healing; R11.0 Nausea; R05 Cough; R10.32 Left lower quadrant pain; Z79.01 Long term (current) use of anticoagulants; X58.XXXA Exposure to other specified factors, initial encounter; Y92.89 Other specified places as the place of occurrence of the external cause; Y93.89 Activity, other specified; Y99.9 Unspecified external cause status

== ENCOUNTER → 2017-06-20 | Outpatient (REF) | payer MEDICARE, OTHER ==
[~2017-06-20] MED LIST changes: +AZIT-12 PO; +BENZ200C53 PO; +PRED20TA PO
[2017-06-20 16:31] LABS: BLOOD UREA NITROGEN 13 MG/DL (7-18); CREATININE FOR GFR 0.84 MG/DL (0.55-1.02); GLOMERULAR FILTRATION RATE > 60.0 (>39)
== END ==
LOC: M LABDRAW1 15:33
PROVIDERS: ATTEND Orthopaedic Surgery
DX: S23.3XXA Sprain of ligaments of thoracic spine, initial encounter (principal); X58.XXXA Exposure to other specified factors, initial encounter; Y92.89 Other specified places as the place of occurrence of the external cause; Y93.89 Activity, other specified; Y99.8 Other external cause status

== ENCOUNTER → 2018-03-05 | Outpatient (CLI) | payer MEDICARE, OTHER ==
[2018-03-05 11:54] LABS: TOTAL 25(OH) VITAMIN D 51.8 NG/ML (30.0-100.0)
[2018-03-05 11:55] LABS: ANION GAP 6 MEQ/L (8-16); BLOOD UREA NITROGEN 15 MG/DL (7-18); CALCIUM LEVEL 8.9 MG/DL (8.8-10.2); CARBON DIOXIDE LEVEL 28 MEQ/L (21-32); CHLORIDE LEVEL 105 MEQ/L (98-107); GLOMERULAR FILTRATION RATE > 60.0 (>32); GLUCOSE, FASTING 84 MG/DL (70-100); POTASSIUM SERUM 4.5 MEQ/L (3.5-5.1); SODIUM LEVEL 139 MEQ/L (136-145)
== END ==
LOC: M LAB 10:22
DX: M81.0 Age-related osteoporosis without current pathological fracture (principal); E55.9 Vitamin D deficiency, unspecified
CPT/HCPCS: 82306

== ENCOUNTER 2018-03-12 13:17 | Outpatient (CLI) | payer MEDICARE, OTHER ==
[2018-03-12] MEDS: ZOLEDRONIC ACID 5 MG in APPROPRIATE DILUENT 1 EA IV (13:48)
== END 2018-03-12 14:30 | disposition home or self-care (01) ==
LOC: M INFU 13:17
DX: M81.0 Age-related osteoporosis without current pathological fracture (principal); I10 Essential (primary) hypertension; E78.00 Pure hypercholesterolemia, unspecified; G20 Parkinson's disease; M12.9 Arthropathy, unspecified; Z79.899 Other long term (current) drug therapy; Z88.8 Allergy status to other drugs, medicaments and biological substances; Z86.73 Personal history of transient ischemic attack (TIA), and cerebral infarction without residual deficits; Z85.3 Personal history of malignant neoplasm of breast; Z86.79 Personal history of other diseases of the circulatory system
CPT/HCPCS: J3489

== ENCOUNTER → 2019-03-23 | Outpatient (REF) | payer MEDICARE, OTHER ==
[~2019-03-23] MED LIST changes: -ALEN70TA39 PO; +ALEN70TA74 PO; +ASPI-1 PO; -ASPI1TAB PO; -ASPI325T PO; +ASPI81TA26 PO; +BENZ-18; -BENZ100C5; -BENZ200C53 PO; +BENZ200C70 PO; -CARB25TA PO; +CARB25TA9 PO; +LOSA25TA14 PO; -LOSA25TA8 PO; -LOSA50TA20 PO; +LOSA50TA88 PO; -PRAD150C PO; +PRAD150C6 PO
[2019-03-23 16:35] LABS: BLOOD UREA NITROGEN 17 MG/DL (7-18); CALCIUM LEVEL 9.8 MG/DL (8.8-10.2); CARBON DIOXIDE LEVEL 27 MEQ/L (21-32); CHLORIDE LEVEL 106 MEQ/L (98-107); CREATININE FOR GFR 0.72 MG/DL (0.55-1.30); GLOMERULAR FILTRATION RATE > 60.0 (>32); GLUCOSE, FASTING 78 MG/DL (70-100); POTASSIUM SERUM 3.9 MEQ/L (3.5-5.1); SODIUM LEVEL 139 MEQ/L (136-145)
[2019-03-23 16:46] LABS: TOTAL 25(OH) VITAMIN D 38.3 NG/ML (30.0-100.0)
== END ==
LOC: M LABDRAW1 15:38
PROVIDERS: ATTEND Internal Medicine Endocrinology, Diabetes & Metabolism
DX: M81.0 Age-related osteoporosis without current pathological fracture (principal)

== ENCOUNTER → 2019-04-16 | Outpatient (CLI) | payer MEDICARE, OTHER ==
[~2019-04-16] MED LIST changes: +MM S100C PO; -STOO100C PO
--- NOTE | 2019-04-16 16:15 | REP ---
Right rib series: Five views including PA chest. History: Contusion. Comparison study is from June 12, 2017 although the prior study was left-sided. Findings: PA chest radiograph shows a loop recorder visible on the left. The aorta is calcific and tortuous. This is unchanged. Heart is not enlarged. No mediastinal widening is seen. There is no evidence of pneumothorax or hydrothorax. Multiple views of the right ribcage demonstrate old appearing fracture deformities of the right posterolateral 4th, 6th, and 7th ribs in the right anterior lateral 5th and 6th ribs. The anterior 5th and 6th rib deformities may be acute. This should be correlated with area of pain and tenderness. No other acute rib fracture is seen. No bony destructive lesion is seen. Impression: Multiple right-sided rib fractures most of which appear to be old. Anterior 5th and 6th rib fracture deformities may be acute. Electronically Signed by Iggy Samlls MD 04/16/2019 05:14 P
== END ==
LOC: M WUC 10:18
PROVIDERS: ATTEND Physician Assistant
DX: S22.41XA Multiple fractures of ribs, right side, initial encounter for closed fracture (principal); X58.XXXA Exposure to other specified factors, initial encounter; Y92.89 Other specified places as the place of occurrence of the external cause; Z87.81 Personal history of (healed) traumatic fracture

== ENCOUNTER → 2019-04-30 | Outpatient (REF) | payer MEDICARE, OTHER ==
[2019-04-30 16:05] LABS: BLOOD UREA NITROGEN 10 MG/DL (7-18); CALCIUM LEVEL 9.2 MG/DL (8.8-10.2); CARBON DIOXIDE LEVEL 24 MEQ/L (21-32); CHLORIDE LEVEL 106 MEQ/L (98-107); CREATININE FOR GFR 0.75 MG/DL (0.55-1.30); GLOMERULAR FILTRATION RATE > 60.0 (>32); GLUCOSE, FASTING 78 MG/DL (70-100); POTASSIUM SERUM 4.3 MEQ/L (3.5-5.1); SODIUM LEVEL 139 MEQ/L (136-145)
== END ==
LOC: M LABDRAW1 11:59
PROVIDERS: ATTEND Internal Medicine Endocrinology, Diabetes & Metabolism
DX: M81.0 Age-related osteoporosis without current pathological fracture (principal); E58 Dietary calcium deficiency; E55.9 Vitamin D deficiency, unspecified; M79.10 Myalgia, unspecified site

== ENCOUNTER → 2019-04-30 | Outpatient (REF) | payer MEDICARE, OTHER | LOC: M LAB REF 17:03 | PROVIDERS: ATTEND Internal Medicine | DX: M79.10 Myalgia, unspecified site (principal) ==

== ENCOUNTER 2019-05-13 15:53 | Outpatient (CLI) | payer MEDICARE, OTHER ==
[~2019-05-13] VITALS: Ht 152.4 cm; Wt 66.3 kg
[2019-05-13 16:00] VITALS: BP 144/81
[2019-05-13] MEDS ORDERED: ZOLEDRONIC ACID 5 MG in APPROPRIATE DILUENT 1 EA IV ONE (16:15)
[2019-05-13] MEDS ORDERED: NORV5TAB PO (17:01)
[2019-05-13] MEDS ORDERED: REFR0.5D8 OP (17:02)
[2019-05-13] MEDS ORDERED: ACET1TAB55 PO (17:05)
[2019-05-13] MEDS ORDERED: ASPI81TA21 PO (17:05)
[2019-05-13 17:15] VITALS: BP 142/76
== END 2019-05-13 17:15 | disposition home or self-care (01) ==
LOC: M INFU 15:53
PROVIDERS: ATTEND Internal Medicine Endocrinology, Diabetes & Metabolism
DX: M81.0 Age-related osteoporosis without current pathological fracture (principal); Z88.1 Allergy status to other antibiotic agents; Z88.8 Allergy status to other drugs, medicaments and biological substances
CPT/HCPCS: 96365; J3489

== ENCOUNTER → 2019-05-28 | Outpatient (REF) | payer MEDICARE, OTHER ==
[~2019-05-28] MED LIST changes: +ACET1TAB55 PO; +ASPI81TA21 PO; +NORV5TAB PO; +REFR0.5D8 OP
[2019-05-28 18:02] LABS: C REACTIVE PROTEIN QUANTITATIV 0.96 MG/DL (0.00-0.30); RHEUMATOID FACTOR QUANT < 10.0 IU/ML (<15.0)
== END ==
LOC: M LAB REF 17:06
PROVIDERS: ATTEND Internal Medicine
DX: M75.42 Impingement syndrome of left shoulder (principal)

== ENCOUNTER 2020-04-20 09:42 | Outpatient (RCR) | payer MEDICARE, OTHER ==
[~2020-04-20 09:42] MED LIST changes: -ASPI81TA85 PO; +ASPI81TA86 PO; +CYCL-707 PO; -CYCL10TA PO
== END 2020-05-06 ==
LOC: M PT 09:42
PROVIDERS: ATTEND Orthopaedic Surgery
DX: M25.511 Pain in right shoulder (principal); M25.512 Pain in left shoulder

== ENCOUNTER → 2020-08-09 | Outpatient (REF) | payer MEDICARE, OTHER | LOC: M LAB REF 16:26 | PROVIDERS: ATTEND Internal Medicine | DX: M25.50 Pain in unspecified joint (principal) ==

== ENCOUNTER 2020-09-07 15:09 | Outpatient (CLI) | payer MEDICARE, OTHER ==
[~2020-09-07] VITALS: Ht 152.4 cm; Wt 66.8 kg
[~2020-09-07 15:09] MED LIST changes: +COLC0.6T47 PO; -COLC1TAB13 PO
[2020-09-07 15:15] VITALS: BP 170/76
[2020-09-07] MEDS ORDERED: ZOLEDRONIC ACID 5 MG in IV 1 EA IV ONE (15:30)
[2020-09-07] MEDS ORDERED: METO1TAB87 PO (15:56)
[2020-09-07 16:20] VITALS: BP 150/73
== END 2020-09-07 16:20 | disposition home or self-care (01) ==
LOC: M INFU 15:09
PROVIDERS: ATTEND Internal Medicine Endocrinology, Diabetes & Metabolism
DX: M81.0 Age-related osteoporosis without current pathological fracture (principal); Z88.6 Allergy status to analgesic agent; Z88.2 Allergy status to sulfonamides
CPT/HCPCS: 96365; J3489

== ENCOUNTER 2021-03-03 12:30 | Outpatient (RCR) | payer MEDICARE, OTHER ==
[~2021-03-03 12:30] MED LIST changes: -ALEN70TA74 PO; +ALEN70TA82 PO; +METO1TAB87 PO
== END 2021-03-06 ==
LOC: M PT 12:30
PROVIDERS: ATTEND Orthopaedic Surgery
DX: Z96.642 Presence of left artificial hip joint (principal)

== ENCOUNTER 2021-04-04 10:09 | Outpatient (RCR) | payer MEDICARE, OTHER | END 2021-04-05 | LOC: M PT 10:09 | PROVIDERS: ATTEND Orthopaedic Surgery | DX: Z96.642 Presence of left artificial hip joint (principal); Z47.89 Encounter for other orthopedic aftercare ==

== ENCOUNTER 2021-05-02 10:00 | Outpatient (RCR) | payer MEDICARE, OTHER | END 2021-05-06 | LOC: M PT 10:00 | PROVIDERS: ATTEND Orthopaedic Surgery | DX: Z47.89 Encounter for other orthopedic aftercare (principal); S72.002A Fracture of unspecified part of neck of left femur, initial encounter for closed fracture; Z96.642 Presence of left artificial hip joint; X58.XXXA Exposure to other specified factors, initial encounter; Y92.9 Unspecified place or not applicable; Y99.9 Unspecified external cause status ==

== ENCOUNTER 2021-05-11 09:45 | Outpatient (RCR) | payer MEDICARE, OTHER | END 2021-06-06 | LOC: M PT 09:45 | PROVIDERS: ATTEND Orthopaedic Surgery | DX: Z96.642 Presence of left artificial hip joint (principal) ==

== ENCOUNTER → 2021-05-22 | Outpatient (REF) | payer MEDICARE, OTHER ==
[2021-05-22 18:12] LABS: FOLATE 9.7 NG/ML
== END ==
LOC: M LAB REF 16:36
PROVIDERS: ATTEND Internal Medicine
DX: G60.9 Hereditary and idiopathic neuropathy, unspecified (principal); E53.9 Vitamin B deficiency, unspecified

== ENCOUNTER → 2021-07-28 | Outpatient (CLI) | payer MEDICARE, OTHER ==
--- NOTE | 2021-07-28 13:04 | REP ---
INDICATION: NECK, BACK PAIN. COMPARISON: 06/12/2017 TECHNIQUE: AP and lateral views there is a metallic radiodensity superimposed over the upper thoracic spine on the AP view obscuring T4 through T7 inclusive. FINDINGS: The lateral view shows multiple thoracic vertebral body compression deformity of various stages having a stable appearance. The bones are demineralized. There is anterior lipping and anterior disc space narrowing at every level. IMPRESSION: Exam limitations and stable appearing chronic changes as described above. <Electronically signed by Lucho Holder > 07/28/21 1300
--- NOTE | 2021-07-28 13:06 | REP ---
INDICATION: NECK, BACK PAIN. COMPARISON: None TECHNIQUE: AP and lateral FINDINGS: The dens cannot be effectively evaluated secondary to the superimposition of osseous structures and/or dentition on all views. Hypertrophic degenerative facet and uncovertebral joint changes are present at every level bilaterally. Vertebral body height is within normal limits. The C7-T1 level cannot be adequately assessed. There is a 1 mm anterolisthesis of C3 on C4 and a 2 mm anterolisthesis of C4 on C5. The facet joints appear well aligned. The bones are demineralized. IMPRESSION: Chronic changes and exam limitations as described above. Although this plain radiographic evaluation of the cervical spine shows no evidence of a fracture, it should be remembered that CT is much more sensitive than plain radiography of the C-spine in detecting fractures. If this examination was ordered to rule out a fracture then CT of the cervical spine is recommended. <Electronically signed by Lucho Holder > 07/28/21 0524
--- NOTE | 2021-07-28 13:10 | REP ---
INDICATION: NECK, BACK PAIN. COMPARISON: 03/15/2015 TECHNIQUE: Three views FINDINGS: Vertebral body height and alignment is unchanged. There is a grade 1 L4 upon L5 spondylolisthesis status quo. The bones are demineralized. There is disc space narrowing seen posteriorly at all levels status quo. Hypertrophic degenerative facet joint changes are again seen bilaterally at every level. Bilateral marginal osteophytosis is seen at every level. IMPRESSION: Rather stable appearing chronic changes as described above. <Electronically signed by Lucho Holder > 07/28/21 [id number]
== END ==
LOC: M PLAIMG 11:16
PROVIDERS: ATTEND Psychiatry & Neurology Neurology
DX: M43.16 Spondylolisthesis, lumbar region (principal); M54.2 Cervicalgia

== ENCOUNTER → 2021-09-27 | Outpatient (REF) | payer MEDICARE, OTHER | LOC: M LAB REF 11:53 | PROVIDERS: ATTEND Internal Medicine | DX: I10 Essential (primary) hypertension (principal) ==

== ENCOUNTER → 2022-04-03 | Outpatient (CLI) | payer MEDICARE, OTHER ==
[~2022-04-03] MED LIST changes: +LOSA25TA13 PO; -LOSA25TA14 PO; +LOSA50TA28 PO; -LOSA50TA88 PO; +ULTR1TAB PO; -ULTR37.54 PO
== END ==
LOC: M RAD 11:43
PROVIDERS: ATTEND Internal Medicine
DX: E04.1 Nontoxic single thyroid nodule (principal)

== ENCOUNTER → 2022-05-31 | Outpatient (CLI) | payer MEDICARE, OTHER | LOC: M WHC 09:32 | PROVIDERS: ATTEND Internal Medicine | DX: M81.0 Age-related osteoporosis without current pathological fracture (principal) ==

== ENCOUNTER → 2022-08-05 | Outpatient (CLI) | payer MEDICARE, OTHER ==
[~2022-08-05] MED LIST changes: +AREDS 2 PO; +B-12100010 PO; +CLOP75TA99 PO; +ECOT81TA5 PO; +MIRA3350 PO; +OYST500C PO; -PLAV1TAB2 PO; +PRAV10TA3 PO
== END ==
LOC: M LABSMTC 10:23
PROVIDERS: ATTEND Anesthesiology
DX: Z01.812 Encounter for preprocedural laboratory examination (principal); Z20.822 Contact with and (suspected) exposure to COVID-19

== ENCOUNTER 2022-08-09 08:25 | Day surgery (SDC) | payer MEDICARE, OTHER ==
[~2022-08-09] VITALS: Ht 152.4 cm; Wt 67.6 kg
[~2022-08-09 08:25] MED LIST changes: +LIDOCAINE 2% 100MG/5ML SDV (FOR ANES.) As Ordered ONE; +NS 1,000 ML IV ONE; +propofoL 200 MG/20 ML VIAL As Ordered ONE
[2022-08-09] MEDS ORDERED: AMLO2.5T3 PO (09:12)
[2022-08-09 10:24] VITALS: BP 120/73
== END 2022-08-09 10:26 | disposition home or self-care (01) ==
LOC: M OPP 08:25
PROVIDERS: ATTEND Surgery
DX: Z12.11 Encounter for screening for malignant neoplasm of colon (principal); Z86.010 Personal history of colon polyps; D12.5 Benign neoplasm of sigmoid colon; K57.30 Diverticulosis of large intestine without perforation or abscess without bleeding; K29.70 Gastritis, unspecified, without bleeding; R13.10 Dysphagia, unspecified; Z79.01 Long term (current) use of anticoagulants; Z79.02 Long term (current) use of antithrombotics/antiplatelets; Z79.82 Long term (current) use of aspirin; Z79.899 Other long term (current) drug therapy; E78.00 Pure hypercholesterolemia, unspecified; I10 Essential (primary) hypertension; I48.91 Unspecified atrial fibrillation; E04.2 Nontoxic multinodular goiter; Z88.1 Allergy status to other antibiotic agents; Z88.2 Allergy status to sulfonamides; Z88.5 Allergy status to narcotic agent; Z88.6 Allergy status to analgesic agent; Z88.8 Allergy status to other drugs, medicaments and biological substances; Z91.048 Other nonmedicinal substance allergy status; Z85.3 Personal history of malignant neoplasm of breast; Z92.3 Personal history of irradiation; Z87.891 Personal history of nicotine dependence

== ENCOUNTER → 2023-01-29 | Outpatient (REF) | payer MEDICARE, OTHER ==
[~2023-01-29] MED LIST changes: +AMLO2.5T3 PO; -LIDOCAINE 2% 100MG/5ML SDV (FOR ANES.) As Ordered ONE; -NS 1,000 ML IV ONE; -propofoL 200 MG/20 ML VIAL As Ordered ONE
== END ==
LOC: M LAB REF 16:29
PROVIDERS: ATTEND Internal Medicine
DX: M81.0 Age-related osteoporosis without current pathological fracture (principal); E04.2 Nontoxic multinodular goiter

== ENCOUNTER → 2023-02-18 | Outpatient (CLI) | payer MEDICARE, OTHER | LOC: M WUC 11:29 | PROVIDERS: ATTEND Internal Medicine | DX: R20.0 Anesthesia of skin (principal) ==

== ENCOUNTER → 2023-02-27 | Outpatient (CLI) | payer MEDICARE, OTHER | LOC: M PLAIMG 08:06 | PROVIDERS: ATTEND Physician Assistant Surgical | DX: M17.11 Unilateral primary osteoarthritis, right knee (principal) ==

== ENCOUNTER → 2023-04-18 | Outpatient (REF) | payer MEDICARE, OTHER ==
[2023-04-18 14:25] LABS: FERRITIN 54.9 NG/ML (7.3-270.7); PERCENT SATURATION 20.4 % (13.2-45.0)
== END ==
LOC: M LAB REF 12:37
PROVIDERS: ATTEND Internal Medicine
DX: D50.9 Iron deficiency anemia, unspecified (principal)

== ENCOUNTER → 2023-07-24 | Outpatient (REF) | payer MEDICARE, OTHER ==
[~2023-07-24] MED LIST changes: -COZA1TAB PO; +LOSA-527 PO
== END ==
LOC: M LAB REF 16:33
PROVIDERS: ATTEND Internal Medicine
DX: Z01.818 Encounter for other preprocedural examination (principal)

== ENCOUNTER 2023-08-05 17:54 | Emergency (ER) | payer MEDICARE, OTHER ==
[~2023-08-05] VITALS: Ht 152.4 cm; Wt 67.3 kg
[2023-08-05 18:19] VITALS: TEMP 98.9; O2SAT 98
[2023-08-05 20:50] LABS: BASO % 0.7 % (0.0-1.0); EOS % 0.5 % (0.0-3.0); HEMATOCRIT 31.1 % (36.0-47.0); HEMOGLOBIN 10.1 g/dl (12.0-15.5); LYMPH # 0.5 10^3/uL (1.5-5.0); LYMPH % 8.8 % (24.0-44.0); MEAN CORPUSCULAR HEMOGLOBIN 29.1 pg (27.0-33.0); MEAN CORPUSCULAR HGB CONC 32.5 g/dl (32.0-36.5); MEAN CORPUSCULAR VOLUME 89.6 fl (80.0-96.0); MONO # 0.1 10^3/uL (0.0-0.8); MONO % 2.2 % (2.0-8.0); NEUTROPHILS # 5.3 10^3/uL (1.5-8.5); NEUTROPHILS % 87.5 % (36.0-66.0); PLATELET COUNT, AUTOMATED 291 10^3/uL (150-450); RED BLOOD COUNT 3.47 10^6/uL (4.00-5.40)
[2023-08-05 21:38] LABS: ALBUMIN 1.7 G/DL (3.2-5.2); ALKALINE PHOSPHATASE 36 U/L (46-116); ALT/SGPT < 9 U/L (7.0-40); AST/SGOT 14 U/L (<34); BILIRUBIN,DIRECT 0.2 MG/DL (<0.4); BILIRUBIN,TOTAL 0.4 MG/DL (0.3-1.2); BLOOD UREA NITROGEN 8 MG/DL (9-23); CARBON DIOXIDE LEVEL 15 MMOL/L (20-31); CHLORIDE LEVEL 121 MMOL/L (98-107); CREATININE FOR GFR 0.31 MG/DL (0.55-1.30); GLOMERULAR FILTRATION RATE > 60.0 (>32); GLUCOSE, FASTING 70 MG/DL (74-106); POTASSIUM SERUM 2.2 MMOL/L (3.5-5.1); SODIUM LEVEL 146 MMOL/L (136-145); TOTAL PROTEIN 3.4 G/DL (5.7-8.2)
[2023-08-05] MEDS ORDERED: ISOVUE-370 76% 100ML VIAL As Ordered ONE (22:31)
[2023-08-06] MEDS ORDERED: ALBU6.7H6 INH
[2023-08-06 00:05] LABS: BLOOD UREA NITROGEN 12 MG/DL (9-23); CALCIUM LEVEL 8.8 MG/DL (8.3-10.6); CARBON DIOXIDE LEVEL 22 MMOL/L (20-31); CHLORIDE LEVEL 103 MMOL/L (98-107); CREATININE FOR GFR 0.47 MG/DL (0.55-1.30); GLOMERULAR FILTRATION RATE > 60.0 (>32); GLUCOSE, FASTING 127 MG/DL (74-106); POTASSIUM SERUM 3.7 MMOL/L (3.5-5.1); SODIUM LEVEL 135 MMOL/L (136-145)
[2023-08-06] MEDS ORDERED: ALBUTEROL 90 MCG/ACT 8GM HFA INHALER INH ONE (01:25)
[2023-08-06] MEDS ORDERED: AZITHROMYCIN 250MG TABLET PO ONE (01:25)
[2023-08-06] MEDS ORDERED: AZIT500T5 PO (01:28)
[2023-08-06 01:46] VITALS: BP 143/88
== END 2023-08-06 01:55 | disposition home or self-care (01) ==
LOC: EDBD 17:54 → M ED 17:54
DX: J18.9 Pneumonia, unspecified organism (principal); R06.00 Dyspnea, unspecified; E07.89 Other specified disorders of thyroid; I51.7 Cardiomegaly; I51.9 Heart disease, unspecified; I10 Essential (primary) hypertension; Z86.73 Personal history of transient ischemic attack (TIA), and cerebral infarction without residual deficits; Z95.1 Presence of aortocoronary bypass graft; Z79.899 Other long term (current) drug therapy; Z88.5 Allergy status to narcotic agent; Z88.6 Allergy status to analgesic agent; Z88.1 Allergy status to other antibiotic agents; Z88.8 Allergy status to other drugs, medicaments and biological substances; Z91.040 Latex allergy status
CPT/HCPCS: 71045; 71275; 80048; 80076; 83880; 84484; 85025; 87486; 87581; 87633; 87798; 93005; 93041; 94760; 99284; Q9967

== ENCOUNTER → 2024-01-07 | Outpatient (REF) | payer MEDICARE, OTHER ==
[~2024-01-07] MED LIST changes: +ALBU6.7H6 INH; +AZIT500T5 PO
[2024-01-07 20:47] LABS: BLOOD UREA NITROGEN 19 MG/DL (9-23); CALCIUM LEVEL 10.4 MG/DL (8.3-10.6); CARBON DIOXIDE LEVEL 26 MMOL/L (20-31); CHLORIDE LEVEL 105 MMOL/L (98-107); CREATININE FOR GFR 0.61 MG/DL (0.55-1.30); GLOMERULAR FILTRATION RATE > 60.0 (>32); GLUCOSE, FASTING 83 MG/DL (74-106); POTASSIUM SERUM 4.4 MMOL/L (3.5-5.1); SODIUM LEVEL 139 MMOL/L (136-145)
[2024-01-07 20:50] LABS: TOTAL 25(OH) VITAMIN D 34.2 NG/ML (20.0-100.0)
== END ==
LOC: M LAB REF 19:59
PROVIDERS: ATTEND Internal Medicine Endocrinology, Diabetes & Metabolism
DX: M81.0 Age-related osteoporosis without current pathological fracture (principal); E55.9 Vitamin D deficiency, unspecified

== ENCOUNTER 2024-05-19 10:39 | Outpatient (RCR) | payer MEDICARE, OTHER | END 2024-06-06 | LOC: M PT 10:39 | PROVIDERS: ATTEND Physician Assistant | DX: M19.071 Primary osteoarthritis, right ankle and foot (principal); S86.111A Strain of other muscle(s) and tendon(s) of posterior muscle group at lower leg level, right leg, initial encounter ==

== ENCOUNTER 2024-07-22 22:32 | Emergency (ER) | payer MEDICARE, OTHER ==
[~2024-07-22] VITALS: Ht 152.4 cm; Wt 64.1 kg
[2024-07-22 22:42] VITALS: BP 133/88; TEMP 97.2; O2SAT 95
== END 2024-07-22 23:50 | disposition left against medical advice (07) ==
LOC: M ED 22:32
DX: Z53.21 Procedure and treatment not carried out due to patient leaving prior to being seen by health care provider (principal)

== ENCOUNTER → 2024-08-12 | Outpatient (REF) | payer MEDICARE, OTHER ==
[2024-08-13 15:10] LABS: PERCENT SATURATION 13.5 % (13.2-45.0)
[2024-08-13 15:11] LABS: FERRITIN 27.4 NG/ML (7.3-270.7)
== END ==
LOC: M LAB REF 12:54
PROVIDERS: ATTEND Internal Medicine
DX: D64.9 Anemia, unspecified (principal)

== ENCOUNTER → 2025-04-29 | Outpatient (CLI) | payer MEDICARE, OTHER ==
[~2025-04-29] MED LIST changes: +LIDO1ADH93 TD; -LIDO5DIS41 TD; -PRAV10TA3 PO; +PRAV10TA43 PO
== END ==
LOC: M RAD 16:01
PROVIDERS: ATTEND Nurse Practitioner Family
DX: E04.2 Nontoxic multinodular goiter (principal)

== ENCOUNTER → 2025-07-26 | Outpatient (CLI) | payer MEDICARE, OTHER ==
[~2025-07-26] MED LIST changes: -COLC0.6T47 PO; +COLC0.6T53 PO
[2025-07-26 12:49] LABS: CALCIUM LEVEL 9.9 MG/DL (8.3-10.6); CARBON DIOXIDE LEVEL 25.0 MMOL/L (20-31); CHLORIDE LEVEL 101.0 MMOL/L (98-107); CREATININE FOR GFR 0.8 MG/DL (0.55-1.30); GLOMERULAR FILTRATION RATE 70.8 (>32); POTASSIUM SERUM 4.0 MMOL/L (3.5-5.1); SODIUM LEVEL 137.0 MMOL/L (136-145)
== END ==
LOC: M WUC 09:14
PROVIDERS: ATTEND Nurse Practitioner Family
DX: M81.0 Age-related osteoporosis without current pathological fracture (principal)

== ENCOUNTER → 2025-07-26 | Outpatient (CLI) | payer MEDICARE, OTHER ==
[2025-07-26 12:42] LABS: BASO # 0.1 10^3/uL (0.0-0.2); BASO % 1.4 % (0.0-1.0); EOS # 0.2 10^3/uL (0.0-0.5); EOS % 3.8 % (0.0-3.0); LYMPH # 1.4 10^3/uL (1.5-5.0); LYMPH % 28.1 % (24.0-44.0); MONO # 0.4 10^3/uL (0.0-0.8); MONO % 8.8 % (2.0-8.0); NEUTROPHILS # 2.9 10^3/uL (1.5-8.5); NEUTROPHILS % 57.7 % (36.0-66.0); PLATELET COUNT, AUTOMATED 316 10^3/uL (150-450)
[2025-07-26 12:46] LABS: APPEARANCE, URINE HAZY (CLEAR); BACTERIA, URINE AUTO NEGATIVE (NEGATIVE); BILIRUBIN, URINE AUTO NEGATIVE (NEGATIVE); BLOOD, URINE BLOOD NEGATIVE (NEGATIVE); GLUCOSE, URINE (UA) AUTO NEGATIVE (NEGATIVE); KETONE, URINE AUTO NEGATIVE (NEGATIVE); LEUKOCYTE ESTERASE, URINE AUTO TRACE (NEGATIVE); MUCUS, URINE SMALL (NEGATIVE); NITRITE, URINE AUTO NEGATIVE (NEGATIVE); PROTEIN, URINE AUTO NEGATIVE (NEGATIVE); RBC, URINE AUTO 0 /HPF (0-3); SPECIFIC GRAVITY URINE AUTO 1.012 (1.002-1.035); SQUAMOUS EPITHELIAL CELL UR AU 1 /HPF (0-6); UROBILINOGEN, URINE AUTO 0.2 mg/dL (0.0-2.0); WBC, URINE AUTO 2 /HPF (0-3)
[2025-07-26 13:23] LABS: ALT/SGPT 11.0 U/L (7.0-40); AST/SGOT 22.0 U/L (<34); CALCIUM LEVEL 10.0 MG/DL (8.3-10.6); CARBON DIOXIDE LEVEL 24.0 MMOL/L (20-31); CHLORIDE LEVEL 101.0 MMOL/L (98-107); CHOLESTEROL LEVEL 195.0 MG/DL (<200); CHOLESTEROL RISK RATIO 2.05 (<5); CREATININE FOR GFR 0.81 MG/DL (0.55-1.30); GLOMERULAR FILTRATION RATE 69.8 (>32); LDL CHOLESTEROL 86.6 MG/DL (<100); MAGNESIUM LEVEL 2.2 MG/DL (1.8-2.4); NON-HDL-C 100.0 MG/DL; POTASSIUM SERUM 4.0 MMOL/L (3.5-5.1); SODIUM LEVEL 137.0 MMOL/L (136-145); TRIGLYCERIDES LEVEL 67.0 MG/DL (<150)
== END ==
LOC: M WUC 09:16
PROVIDERS: ATTEND Internal Medicine
DX: I10 Essential (primary) hypertension (principal); R63.5 Abnormal weight gain